=== PATIENT | male | born 1970 | race American Indian/Alaskan Native ===

== ENCOUNTER 2017-06-24 11:58 | Emergency (ER) | payer BC ==
[~2017-06-24] VITALS: Ht 170.2 cm; Wt 77.0 kg
[~2017-06-24 11:58] MED LIST: ACET325T33 PO
[2017-06-24 12:00] VITALS: Ht 170.2 cm; Wt 77.0 kg
[2017-06-24] MEDS ORDERED: IBUPROFEN 800 MG TAB PO ONE (12:30)
--- NOTE | 2017-06-24 13:36 | RADRPT ---
PROCEDURE: XR Chest. CLINICAL INDICATION: chest pain TECHNIQUE: Single frontal view of the chest was obtained COMPARISON: 03/05/2016 FINDINGS: The heart and mediastinum are within normal limits. The lungs are clear. There is no pleural effusion or pneumothorax. RPTAT: AA IMPRESSION: No acute disease. .David Xie MD, MD Date Time Electronically viewed and signed by .David Xie MD, on 06/24/2017 13:36 .S/
[2017-06-24] MEDS ORDERED: IBUP-1542 PO (13:42)
--- NOTE | 2017-06-24 14:01 | ERD ---
ER Documentation Chief Complaint Date/Time DATE: 06/24/17 TIME: 13:55 Chief Complaint CHEST WALL PAIN HPI Patient is a 46-year-old male with no medical problems who presents with chest pain. He says the pain started yesterday. He thought it was gas but it was constant and continued today so he came to the ER for further evaluation. It is a left-sided chest pain and he describes it as a 5 out of 10. It is a sharp pain. He has had no treatment as of yet. He denies shortness of breath. Upon review of old medical records the patient one previous visit to the ER in 2016. ROS All systems reviewed and are negative except as per history of present illness. Medications Home Meds Active Scripts Ibuprofen* (Motrin*) 600 Mg Tab, 600 MG PO Q8, #30 TAB Prov:SKYE MALLOY MD 06/24/17 Acetaminophen* (Tylenol*) 325 Mg Tablet, 2 TAB PO Q8 Y for PAIN AND OR ELEVATED TEMP, #20 TAB Prov:MASOOD [place] DO 08/02/16 PMhx/Soc History of Surgery: Yes (INGUINAL HERNIA) Anesthesia Reaction: No Hx Neurological Disorder: No Hx Respiratory Disorders: No Hx Cardiac Disorders: Yes (HTN) Hx Psychiatric Problems: No Hx Miscellaneous Medical Probl: No Hx Alcohol Use: Yes (2 BEERS /DAY) Hx Substance Use: No Hx Tobacco Use: Yes Smoking Status: Current every day smoker FmHx Family History: No coronary disease Physical Exam Vitals Vital Signs Date Time Temp Pulse Resp B/P Pulse Ox O2 Delivery O2 Flow Rate FiO2 06/24/17 12:00 98.7 71 18 136/89 98 Physical Exam Const: No acute distress Head: Atraumatic Eyes: Normal Conjunctiva ENT: Normal External Ears, Nose and Mouth. Neck: Full range of motion..~ No meningismus. Resp: Clear to auscultation bilaterally Cardio: Regular rate and rhythm, no murmurs Abd: Soft, non tender, non distended. Normal bowel sounds Skin: No petechiae or rashes Back: No midline or flank tenderness Ext: No cyanosis, or edema Neur: Awake and alert Psych: Normal Mood and Affect Results 24 hrs Current Medications Medications (Trade) Dose Ordered Sig/Farhana Route PRN Reason Start Time Stop Time Status Last Admin Dose Admin Ibuprofen (Motrin) 800 mg ONCE ONCE PO 06/24/17 12:30 06/24/17 12:31 DC 06/24/17 12:54 Procedures/MDM EKG read by me: Rate/Rhythm: Regular rate and rhythm at a normal rate Intervals: Normal Impression: Some peak T waves consistent with benign early repolarization Chest x-ray negative per radiology. Smoking Cessation Therapy: Pt. was lectured for greater than 3 minutes on the health risks of continued smoking and the benefits of cessation. Patient is a 46-year-old male with no medical problems other than smoking history who presents with chest pain. His EKG shows benign early repolarization but no ischemia or arrhythmia. Chest x-ray shows no pneumonia or pneumothorax. At this point I doubt acute coronary syndrome, pneumonia, pneumothorax, pulmonary embolism, or aortic dissection. I believe outpatient management is appropriate. I did discuss with him the possibility of doing laboratory studies and admitting and even offered this but he would prefer to go home at this time and I feel that is a reasonable course of action. The patient can return for any worsening symptoms. Departure Diagnosis: Primary Impression: Chest pain Chest pain type: unspecified Qualified Code: R07.9 - Chest pain, unspecified type Condition: Fair Patient Instructions: Chest Pain, Uncertain Cause Referrals: Your doctor Additional Instructions: Call your primary care doctor TOMORROW for an appointment during the next 1-2 days.See the doctor sooner or return here if your condition worsens before your appointment time. SKYE MALLOY MD Jun 24, 2017 14:01
[2017-06-24 14:34] LABS: BASOPHILS % 0.6 % (0.0-2.0); EOSINOPHILS # 0.1 10^3/ul (0.0-0.5); EOSINOPHILS % 0.9 % (0.0-7.0); HEMATOCRIT 41.5 % (42.0-52.0); HEMOGLOBIN 14.4 g/dl (14.0-18.0); LYMPHOCYTES # 2.4 10^3/ul (0.8-2.9); LYMPHOCYTES % 45.6 % (15.0-51.0); MEAN CORPUSCULAR HEMOGLOBIN 33.6 pg (29.0-33.0); MEAN CORPUSCULAR HGB CONC 34.7 g/dl (32.0-37.0); MEAN CORPUSCULAR VOLUME 96.7 fl (82.0-101.0); MONOCYTE # 0.4 10^3/ul (0.3-0.9); MONOCYTES % 7.6 % (0.0-11.0); NEUTROPHIL # 2.4 10^3/ul (1.6-7.5); NEUTROPHILS % 45.1 % (39.0-77.0); PLATELET COUNT 224 10^3/UL (140-415); RED BLOOD COUNT 4.29 10^6/ul (4.70-6.10); RED CELL DISTRIBUTION WIDTH 12.7 % (11.5-14.5); WHITE BLOOD COUNT 5.3 10^3/ul (4.8-10.8)
[2017-06-24 14:51] LABS: ANION GAP 16 (8-16); BLOOD UREA NITROGEN 16 mg/dl (7-20); CALCIUM 9.2 mg/dl (8.4-10.2); CARBON DIOXIDE 26 mmol/L (21-31); CHLORIDE 104 mmol/L (97-110); CREATININE 0.92 mg/dl (0.61-1.24); GLUCOSE 85 mg/dl (70-220); POTASSIUM 4.4 mmol/L (3.5-5.1); SODIUM 142 mmol/L (135-144)
[2017-06-24 15:18] LABS: TROPONIN-I < 0.012 ng/ml (0.00-0.12)
[2017-06-24 15:37] VITALS: BP 140/96; PULSE 68; RESP 16; TEMP 98.7
== END 2017-06-24 15:38 | disposition home or self-care (01) ==
LOC: FTE 11:58
DX: R07.89 Other chest pain (principal); I10 Essential (primary) hypertension; F17.210 Nicotine dependence, cigarettes, uncomplicated
CPT/HCPCS: 36415; 71010; 80048; 84484; 85025; 93005

== ENCOUNTER 2019-04-24 17:24 | Emergency (ER) | payer SELFPAY ==
[~2019-04-24] VITALS: Ht 175.3 cm; Wt 74.0 kg
[~2019-04-24 17:24] MED LIST changes: +IBUP-1542 PO
[2019-04-24 17:29] VITALS: BP 124/71; PULSE 102; RESP 16; Ht 175.3 cm; Wt 74.0 kg
== END 2019-04-24 18:25 | disposition left against medical advice (07) ==
LOC: FTE 17:24
DX: Z53.21 Procedure and treatment not carried out due to patient leaving prior to being seen by health care provider (principal)